=== PATIENT | male | born 1960 | race Caucasian/White ===

== ENCOUNTER 2016-11-27 07:06 | Emergency (ER) | payer BC, OTHER ==
[~2016-11-27] VITALS: Ht 180.3 cm; Wt 131.5 kg
[~2016-11-27 07:06] MED LIST: ACTOS 30 MG TAB30 M2 PO; AMLODIPINE PO; ATIVAN0.5 MG PO; BUSPIRONE HCL10 MG PO; COLACE100 MG; DIOVAN HCT 1601 EAC1 PO; DIOVAN PO; DIOVAN160 MG; HUMULIN 50100 UNIT/1 SQ; HUMULINR100 SQ; HUMULINU500 SUBQ; HYDROCHLOROTHIA25 M1; HYDROCODONE-APA1 TA1 PO; LIPITOR 20 MG T20 M1 PO; LOSARTAN POTAS100 MG PO; LOSARTAN-HCTZ1 EAC1 PO; LOSARTAN-HCTZ1 EAC3 PO; METOCLOPRAMIDE10 MG PO; MIRALAX255 GM PO; MOBIC7.5 MG PO; MS CONTIN15 MG PO; NABUMETONE 750750 M1 PO; NAPROSYN500 MG PO; NEURONTIN 300300 M1; NEURONTIN 300300 M1 PO; NORVASC 5 MG TAB5 MG; OXECTA5 MG PO; OXYCODONE-ACET1 EACH PO; OXYCONTIN10 MG PO; PANTOPRAZOLE SO40 M1 PO; PERCOCET 5-3251 EACH PO; PERCOCET PO; PREVACID15 MG PO; PROTONIX40 M2 PO; REGLAN 10 MG TA10 MG PO; REGLAN10 MG PO; RELAFEN750 MG PO; REMERON15 MG PO; TEGRETOL XR100 MG PO; TRILEPTAL 300300 MG PO; TRILEPTAL150 MG PO
[2016-11-27 09:06] LABS: URINE BILIRUBIN NEGATIVE (Negative); URINE BLOOD NEGATIVE (Negative); URINE COLOR YELLOW; URINE GLUCOSE-RANDOM* 3+ (Negative); URINE KETONES NEGATIVE (Negative); URINE NITRITE NEGATIVE (Negative); URINE PROTEIN (DIPSTICK) NEGATIVE (Negative)
[2016-11-27 09:18] VITALS: BP 128/64
[2016-11-27] MEDS ORDERED: PREDNISONE 20 M20 MG PO (09:21)
[2016-11-27] MEDS ORDERED: OXAYDO7.5 MG PO (09:21)
[2016-11-27] MEDS ORDERED: ROBAXIN500 MG PO (10:11)
[2016-12-05] MEDS ORDERED: NORCO 7.5-3251 EACH PO (13:12)
[2016-12-05] MEDS ORDERED: ZANAFLEX4 MG PO (13:12)
== END 2016-11-27 10:27 | disposition home or self-care (01) ==
LOC: ER 07:06
PROVIDERS: Emergency Medicine
DX: G89.29 Other chronic pain (principal); M54.5 Low back pain; I10 Essential (primary) hypertension; K21.9 Gastro-esophageal reflux disease without esophagitis; E11.9 Type 2 diabetes mellitus without complications; F32.9 Major depressive disorder, single episode, unspecified; F41.9 Anxiety disorder, unspecified; G47.30 Sleep apnea, unspecified; F10.99 Alcohol use, unspecified with unspecified alcohol-induced disorder; Z76.0 Encounter for issue of repeat prescription; Z87.442 Personal history of urinary calculi; Z96.652 Presence of left artificial knee joint; Z88.0 Allergy status to penicillin; Z79.4 Long term (current) use of insulin

== ENCOUNTER → 2016-12-01 | Outpatient (CLI) | payer BC, OTHER ==
[~2016-12-01] MED LIST changes: +NORCO 7.5-3251 EACH PO; +OXAYDO7.5 MG PO; +PREDNISONE 20 M20 MG PO; +ROBAXIN500 MG PO; +ZANAFLEX4 MG PO
== END ==
LOC: RAD 11:53
DX: M47.896 Other spondylosis, lumbar region (principal); S70.01XA Contusion of right hip, initial encounter; M25.551 Pain in right hip

== ENCOUNTER → 2016-12-05 | Outpatient (CLI) | payer BC, OTHER ==
[~2016-12-05] VITALS: Ht 182.9 cm; Wt 136.1 kg
--- NOTE | ~2016-12-05 | HPC ---
[facility] [place] [address] PAIN MANAGEMENT CONSULTATION Name: TEA ALEJANDRO Room #: REG [facility] Alon.#: [id number] Admission: 12/05/16 Attend Phys: Bharat Greer DO Discharge: Date of : 64 Report #: [id number] THIS REPORT FOR: //name// CC: Abdifatah Greer DATE OF SERVICE: 12/05/2016 HISTORY OF PRESENT ILLNESS: Mr. Alejandro is a pleasant 56-year-old gentleman, prior treated for symptomatic lumbar radiculopathy and neuropathic pain, status post lumbar decompressive laminectomy. He was last seen in the Pain Clinic greater than 2 years ago for cervical radicular symptoms. He is somewhat lost to follow up. He returns to Pain Clinic today with acute exacerbation of lumbar radicular pain, subsequent to a fall. He fell in the rain about a month ago, with acute exacerbation of pain, now radiating into the right greater than left leg, lateral thigh anterior aspect. He tried Aleve with some efficacy; prednisone, with ongoing pain. He rates it /10. He has a sharp, aching, throbbing, electric sensation. He was actually seen in the ER on 11/27/2016 with pain getting worse. X-rays were ordered at that time. It does show the spinal cord stimulator that was placed on 01/13/2011. This still seems to be working. Did have DJD in the lumbar spine and some narrowing at L3-L4, L4-L5 area. He denies saddle anesthesia or bowel or bladder continence changes. 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 PHYSICAL EXAMINATION: Shows a 56-year-old gentleman, elevated BMI of 40.7 kilograms per meter squared. Vital signs stable as noted in the EMR. Again, subjective VAS score is 7. Rises from chair using armrest, markedly antalgic gait, somewhat forward bending. Decreased left hip flexion strength. Lower extremity extension strength on the left is also diminished. Positive straight leg raise at 30 degrees on the left. Patellar reflex is diminished on this side. ASSESSMENT: Symptomatic lumbar radiculopathy, acute exacerbation of radicular pain in this gentleman, status post decompressive laminectomy, neuropathic pain, history of cervical radiculopathy as well. RECOMMENDATIONS: 1. Lumbar epidural injection under fluoroscopy today at L3-L4. 2. We will order a CT myelogram of the lumbar spine. Have patient accomplish this next week if he does not get significant relief with today's injection. 3. Renew hydrocodone 7.5/325, dispensed 75 tablets, one tablet q. 4-6 hours. We will trial Zanaflex 4 mg t.i.d., 60 tablets, 1 refill for muscle spasms as well. [address] [address] PAIN MANAGEMENT CONSULTATION Name: TEA ALEJANDRO [id number] Admission: 12/05/16 Attend Phys: Bharat Greer DO Discharge: Date of : 64 Report #: [id number] The patient was seen for prolonged visit today. Greater than 25 minutes was spent reviewing interval history, current issues and the treatment options. Seen from 1252 to 1325. Taken to the procedure room at 1332. PROCEDURE: Lumbar epidural injection under fluoroscopy. PROCEDURE NOTE: After both written and informed consent to include risk of spinal cord damage, increased pain, weakness and dural puncture, the patient was taken to the fluoroscopy suite, placed in the prone position. After sterile prep and drape, a skin wheal with lidocaine was raised. A 22-gauge epidural Tuohy needle was inserted in the midline at L3-L4 with good loss to resistance. Negative aspiration for cerebrospinal fluid or blood was noted. Then 1 mL of Omnipaque under biplanar fluoroscopy showed good spread within the epidural space. This was followed with 80 mg of triamcinolone plus 1 mL of 1.5% preservative-free Xylocaine, 0.5 mL Xylocaine was then injected to flush the needle; it was removed. The patient was monitored for an appropriate period of time and discharged in good and stable condition. <ELECTRONICALLY SIGNED> By: Bharat Greer DO 12/08/16 1014 1602 1355 Bharat Greer DO /nt
[2016-12-05 12:43] VITALS: BP 130/85
== END | disposition home or self-care (01) ==
LOC: PAIN 07:19
DX: M54.16 Radiculopathy, lumbar region (principal); G62.9 Polyneuropathy, unspecified; Z98.890 Other specified postprocedural states; Z68.41 Body mass index [BMI] 40.0-44.9, adult; M54.12 Radiculopathy, cervical region; Z79.899 Other long term (current) drug therapy

== ENCOUNTER → 2016-12-11 | Outpatient (CLI) | payer BC, OTHER | LOC: CAT 07:50 | DX: M47.896 Other spondylosis, lumbar region (principal) ==

== ENCOUNTER → 2017-01-05 | Outpatient (CLI) | payer BC, OTHER ==
[~2017-01-05] VITALS: Ht 182.9 cm; Wt 134.3 kg
--- NOTE | ~2017-01-05 | HPC ---
[facility] [place] [address] [place] [address] PAIN MANAGEMENT CONSULTATION Name: WILSONTEA G Room #: REG [facility] Plata#: [id number] Admission: 01/05/17 Attend Phys: Bharat Greer DO Discharge: Date of : 64 Report #: [id number] THIS REPORT FOR: //name// CC: Abdifatah Greer DATE OF SERVICE: 01/05/2017 HISTORY OF PRESENT ILLNESS: The patient is a very pleasant 56-year-old gentleman, long treated for symptomatic lumbar radiculopathy, status post decompressive laminectomy, component of neuropathic pain, component of cervical radiculopathy. Last visit on 12/04/2016. We did an epidural injection at L3-L4. The patient is having ongoing axial back pain along with lumbar radicular pain. We ordered an MRI of the lumbar spine due to progressive symptoms. CT myelogram on 12/11/2016 was reviewed with the patient today. Does have some ligamentum flavum hypertrophy at L3-L4, L4-L5 does note a prior hemilaminectomy, neural foraminal stenosis is noted at L4-L5 and L5-S1 with multilevel spondylosis. The good news is there is essentially no effective changes from prior study, 07/05/2010. The patient returns to pain clinic today noting that the last injection did afford good relief, but pain continues to be problematic. He notes specifically 100% relief for couple of days and then overall pain relief for 4+ weeks. Pain began to recur 2-1/2 days ago and has been quite problematic. PHYSICAL EXAMINATION: Shows tenderness over the L4-L5, L5-S1 facets. Pain exacerbated with side bending and rotation. Still has ongoing lumbar radicular symptoms as well. RECOMMENDATION: Discussion with the patient today about therapeutic options. He would like to proceed with epidural injection under fluoroscopy today at L3-L4, followup him in 4 weeks for reevaluation. I will send the patient to physical therapy for core stabilization. If axial back pain remains problematic at next visit, we will consider moving forward with L4-L5 and L5-S1 bilateral facet joint injections. ASSESSMENT: Symptomatic lumbar radiculopathy secondary to spinal stenosis. PROCEDURE: Lumbar epidural injection under fluoroscopy. PROCEDURE NOTE: After both written and informed consent to include risk of spinal cord damage, increased pain, weakness and dural puncture, the patient was taken to the fluoroscopy suite, placed in the prone position. After sterile [address] [address] PAIN MANAGEMENT CONSULTATION Name: TEA RACHEL Room #: REG CLI Sherlyn#: [id number] Admission: 01/05/17 Attend Phys: Bharat Greer DO Discharge: Date of : 64 Report #: [id number] prep and drape, a skin wheal with lidocaine was raised. A 22-gauge epidural Tuohy needle was inserted in the midline epidural at L3-L4 with good loss to resistance. Negative aspiration for cerebrospinal fluid or blood was noted. Then 1 mL of Omnipaque under biplanar fluoroscopy showed good spread within the epidural space. This was followed with 80 mg of triamcinolone plus 1 mL of 1.5% preservative-free Xylocaine, 0.5 mL Xylocaine was then injected to flush the needle; it was removed. The patient was monitored for an appropriate period of time and discharged in good and stable condition. By: 1540 0135 Bharat Greer DO /nt
[2017-01-05 14:22] VITALS: BP 137/93
== END | disposition home or self-care (01) ==
LOC: PAIN 08:47
DX: M48.061 Spinal stenosis, lumbar region without neurogenic claudication (principal); G89.29 Other chronic pain; M54.12 Radiculopathy, cervical region; Z98.890 Other specified postprocedural states; Z87.442 Personal history of urinary calculi; Z88.0 Allergy status to penicillin; Z79.899 Other long term (current) drug therapy; Z79.4 Long term (current) use of insulin

== ENCOUNTER → 2017-02-06 | Outpatient (CLI) | payer BC, OTHER ==
[~2017-02-06] VITALS: Ht 182.9 cm; Wt 133.2 kg
--- NOTE | ~2017-02-06 | HPC ---
[facility] [place] [place] [address] PAIN MANAGEMENT CONSULTATION Name: TEA RACHEL [facility] [id number] Admission: 02/06/17 Attend Phys: Bharat Greer, DO Discharge: Date of : 64 Report #: [id number] THIS REPORT FOR: //name// CC: Abdifatah Greer The patient is a very pleasant 56-year-old gentleman we treated for some time. He is status post decompressive lumbar laminectomy, axial back pain and comorbidity of lumbar spondylosis. Last visit 01/05/2017, proceeded with epidural injection at L3-L4, sent the patient to Physical Therapy for core strengthening. Ongoing lumbar radicular symptoms. I ordered CT myelogram of the lumbar spine (the patient has a spinal cord stimulator placed, precluding MRI). The patient returns to the pain clinic today. He notes that the prior epidural injection on 01/05/2017 did afford good relief, noting 50% relief for several weeks and pain is gradually beginning to recur. Pain is in the low back, chronically in the right leg, now a little bit on the left. Describes aching, throbbing, constant, sharp, burning, radiating stiffness. He rates the pain a 4 on VAS, on average 7-8 today. PHYSICAL EXAMINATION: Shows a 56-year-old gentleman, moderately obese, BMI is 39.8 kilograms per meter squared. Vital signs are otherwise stable as noted in the EMR. He has burning in the lateral aspect of the leg, right side L4 distribution. Positive straight leg raise on the right. Slight decreased right hip flexion strength and lower extremity extension strength about 3/5 to objective testing versus 4-5/5 for all muscle groups. DIAGNOSTIC STUDIES: Reviewed the CT myelogram from 12/11/2016. Multilevel lumbar spondylosis, no dramatic change in symptoms, but with ongoing right L4 radicular symptoms with good transient relief with epidural injections, concern for the neural foraminal narrowing noted at multiple levels greatest at L4-L5 and L5-S1. We have taken the liberty of referring the patient to Neurosurgery for consideration for more definitive intervention. Otherwise, continue baseline medication including tizanidine 4 mg t.i.d. Really does not use any opiate analgesics for any regularity. ASSESSMENT: History of insulin-dependent diabetes, gastroesophageal reflux and moderate obesity, relative contraindications to ongoing nonsteroidal anti-inflammatory medication chronic use. PROCEDURE: Lumbar epidural injection under fluoroscopy. PROCEDURE NOTE: After both written and informed consent to include risk of spinal cord damage, increased pain, weakness and dural puncture, the patient was [address] [address] PAIN MANAGEMENT CONSULTATION Name: TEA RACHEL Room #: REG [facility] Plata#: [id number] Admission: 02/06/17 Attend Phys: Bharat Greer DO Discharge: Date of : 64 Report #: [id number] taken to the fluoroscopy suite, placed in the prone position. After sterile prep and drape, a skin wheal with lidocaine was raised. A 22-gauge epidural Tuohy needle was inserted in the midline at L3-L4 with good loss to resistance. Negative aspiration for cerebrospinal fluid or blood was noted. Then 1 mL of Omnipaque under biplanar fluoroscopy showed good spread within the epidural space. This was followed with 80 mg of triamcinolone plus 1 mL of 1.5% preservative-free Xylocaine, 0.5 mL Xylocaine was then injected to flush the needle; it was removed. The patient monitored for an appropriate period of time, discharged in good stable condition. Referred to Neurosurgery for possible definitive intervention. <ELECTRONICALLY SIGNED> By: Bharat Greer DO 02/09/17 0759 1020 1444 Bharat Greer DO /nt
[2017-02-06 14:11] VITALS: BP 119/77
== END | disposition home or self-care (01) ==
LOC: PAIN 06:56
DX: M54.16 Radiculopathy, lumbar region (principal); G89.29 Other chronic pain; E11.9 Type 2 diabetes mellitus without complications; K21.9 Gastro-esophageal reflux disease without esophagitis; E66.01 Morbid (severe) obesity due to excess calories; Z79.4 Long term (current) use of insulin; Z79.891 Long term (current) use of opiate analgesic; Z88.0 Allergy status to penicillin; Z87.442 Personal history of urinary calculi; Z79.899 Other long term (current) drug therapy; Z68.39 Body mass index [BMI] 39.0-39.9, adult

== ENCOUNTER → 2017-07-06 | Outpatient (CLI) | payer BC, OTHER ==
[~2017-07-06] VITALS: Ht 182.9 cm; Wt 117.8 kg
[~2017-07-06] MED LIST changes: +HYDROCODON-ACE1 EA12 PO
--- NOTE | ~2017-07-06 | HPC ---
[facility] [place] [address] PAIN MANAGEMENT CONSULTATION Name: WILSONTEA Engel Wagner [facility] [id number] Admission: 07/06/17 Attend Phys: Bharat Greer DO Discharge: Date of : 64 Report #: [id number] THIS REPORT FOR: //name// CC: Abdifatah Greer HISTORY OF PRESENT ILLNESS: The patient is a 57-year-old gentleman long known to the pain clinic, typically treated for lumbar radiculopathy status post decompressive laminectomy, axial back pain and lumbar spondylosis. He was last seen in the pain clinic on 02/06/2017. Having ongoing radicular pain, I did one injection and referred him to Neurosurgery. He ultimately ended up having an L3-L4 decompressive laminectomy on 04/30/2017. Unfortunately, this was complicated with a dural leak and had to have a surgical revision subsequently. He is actually in the hospital for approximately 2 weeks. His chronic right lumbar radicular pain, I am pleased to note, has gone; however, he does have axial back and left buttock and leg pain that is quite problematic and rates it 7 on a VAS. PHYSICAL EXAMINATION: GENERAL: Reveals a 57-year-old gentleman. VITAL SIGNS: BMI is 35.2 kilograms per meter squared. Blood pressure is 143/72, pulse 87 and respirations 16. NEUROLOGICAL: He is alert and oriented to person, place and time, judged to be a reasonable historian. MUSCULOSKELETAL: Rises from the chair using the armrest, modestly antalgic gait. Lumbar flexion is limited to 70 degrees. Well-healed surgical scar compatible with recent history tender from about L4 down bilaterally. Moderately positive straight leg raise on the left. The lower extremity strength is generally preserved. Patellar and Achilles reflexes are diminished but symmetric. He has equivocal Arlen test on the left. SKIN: Integument is intact. DIAGNOSTIC DATA: There are no recent diagnostic studies available for evaluation at this time. ASSESSMENT: Symptomatic lumbar radiculopathy, status post multiple back surgeries, most recently earlier this year, L3-L4 laminectomy, complicated with a dural leak and subsequent surgical revision. Right radicular pain gone but now left lumbar radicular symptoms predominant. RECOMMENDATIONS: 1. Epidural injection under fluoroscopy at L5-S1. 2. Tizanidine 4 mg 1 to 2 at bedtime. I will renew this prescription and he has been on it for some time. 3. Hydrocodone 7.5/325 one tablet 2-3 times a day, limit 75 tablets for 30 days. The patient cautioned about daytime somnolence, mental acuity changes and [address] [address] PAIN MANAGEMENT CONSULTATION Name: WILSONTEA Wagner Room #: REG [facility] Plata#: [id number] Admission: 07/06/17 Attend Phys: Bharat Greer DO Discharge: Date of : 64 Report #: [id number] constipation. Follow up in 3-4 weeks for reevaluation. If symptoms continue, we will work with physical therapy. Hopefully, we can mitigate symptoms to some degree. ASSESSMENT: Symptomatic lumbar radiculopathy status post decompressive laminectomy, axial back pain, neuropathic pain requiring complex medication management. PROCEDURE NOTE: PROCEDURE: Lumbar epidural injection under fluoroscopy. PROCEDURE NOTE: After both written and informed consent to include risk of spinal cord damage, increased pain, weakness and dural puncture, the patient was taken to the fluoroscopy suite, placed in the prone position. After sterile prep and drape, a skin wheal with lidocaine was raised. A 22-gauge epidural Tuohy needle was inserted in the midline at L5-S1 with good loss to resistance. Negative aspiration for cerebrospinal fluid or blood was noted. Then 1 mL of Omnipaque under biplanar fluoroscopy showed good spread within the epidural space. This was followed with 80 mg of triamcinolone plus 1 mL of 1.5% preservative-free Xylocaine, 0.5 mL Xylocaine was then injected to flush the needle; it was removed. The patient was monitored for an appropriate period of time and discharged in good and stable condition. <ELECTRONICALLY SIGNED> By: Bharat Greer DO 07/08/17 0803 1505 0712 Bharat Greer DO /nt
[2017-07-06 12:39] VITALS: BP 143/72
== END | disposition home or self-care (01) ==
LOC: PAIN 08:13
DX: M54.16 Radiculopathy, lumbar region (principal); G89.29 Other chronic pain; Z98.890 Other specified postprocedural states; Z79.891 Long term (current) use of opiate analgesic; Z88.0 Allergy status to penicillin; Z79.899 Other long term (current) drug therapy

== ENCOUNTER → 2017-11-20 | Outpatient (CLI) | payer BC, OTHER ==
[~2017-11-20] VITALS: Ht 182.9 cm; Wt 119.5 kg
--- NOTE | ~2017-11-20 | HPC ---
[facility] [place] [address] PAIN MANAGEMENT CONSULTATION Name: TEA RACHEL Room #: REG [facility] Alon.#: [id number] Admission: 11/20/17 Attend Phys: Isael Moore MD Discharge: Date of : 64 Report #: [id number] THIS REPORT FOR: //name// CC: Isael Moreno DATE OF SERVICE: 11/20/2017 FOLLOWUP HISTORY: The patient is a 57-year-old gentleman who has been followed in the pain clinic by Dr. Bharat Greer. He has a history of lumbar problems. He has undergone decompressive lumbar laminectomies, has axial back pain and comorbidities of lumbar spondylosis. He has undergone epidural steroid injections in the past and found that these were helpful. He has continued to follow exercises provided by physical therapy in regards to core strengthening. He states that he did undergo an epidural steroid injection by Dr. Greer. Noted significant benefit on this pain. Pain involves the lower portion of his back with pain radiating down to the buttocks area. He did undergo surgery with Dr. Brink at [facility]. Notes that the pain, which is radiating down into his leg has improved. Rates his pain as a 7/10 at this juncture. Notes walking and standing as well as walking on any uneven ground can exacerbate his discomfort. Bending can be problematic. Notes some stiffness in the lower back area. Denies any bowel or bladder or new bowel or bladder dysfunction. ALLERGIES: PENICILLIN. CURRENT MEDICATIONS: Hydrocodone 7.5/325 q.6 hours p.r.n., trazodone 4 mg t.i.d., Ativan 0.5 mg, insulin 500 units subcutaneous b.i.d., Lipitor 20 mg, Protonix 40 mg, Actos 30 mg. PAST MEDICAL HISTORY: Diabetes, essential hypertension, gastroesophageal reflux, gastroparesis, sleep apnea, morbid obesity, left total knee replacement, anxiety, depression, renal stones, migraine headaches, panic attacks, seizures, sleep walking. PAST SURGICAL HISTORY: Colonoscopy, adenomatous polyp in 02/2012, left total knee replacement in 2008, right carpal tunnel release in 1995, lumbar diskectomy L4-L5 in 2005, lumbar spine surgery in 1994, back surgery in 1995, left renal stone in 2003, gastric sleeve in 2013. SOCIAL HISTORY: Purchasing/medical manager, has children. REVIEW OF SYSTEMS: As per HPI. LABORATORY DATA: No new laboratory values are available. CT of the lumbar spine dated 12/11/2016: 1. L2-L3 disk space narrowing. There is a small [place] [address] PAIN MANAGEMENT CONSULTATION Name: TEA RACHEL Room #: REG [facility]#: [id number] Admission: 11/20/17 Attend Phys: Isael Moore MD Discharge: Date of : 64 Report #: [id number] complex seen centrally, which effaces the ventral sac. There is mild degenerative facet disease. There is filling of the nerve root sheaths. There is no central canal or neural foraminal stenosis. The appearance is similar to prior study. 2. L3-L4 disk desiccation and mild circumferential disk bulge with effacement of the ventral sac. There is subtle effacement of the ventral surface of the L4 nerve roots. There is moderate bilateral facet hypertrophy with ligamentum flavum thickening measuring 5 mm. There is mild bilateral neural foraminal narrowing. There is filling of the nerve sheath bilaterally. The anterior osteophyte formation is present. 3. L4-L5 disk space narrowing with vacuum disk phenomenon. There is a posterior endplate osteophyte. A remote right-sided laminectomy is present. There is mild left-sided ligamentum flavum thickening. There is [id number] bilateral neural foraminal narrowing and mild effacement of the undersurface of both exiting L4 nerve roots. This is slightly greater on the left. No significant central canal stenosis is present. There is a filling of the nerve root sheaths. 4. L5-S1, small posterior disk osteophyte complex. There is a hypertrophy of both facet joints. There is filling of the S1 nerve root sheaths. There is bilateral neural foraminal narrowing and endplate ridging and effacement of the undersurface of the exiting L5 nerve roots. PAIN CLINIC ASSESSMENT: 1. History of osteoarthritis. The patient has had some arthritic changes in his knees. 2. Rheumatoid arthritis. The patient has not been treated for rheumatoid arthritis. 3. Height 6 feet 0 inches, weight 263 pounds, BMI is 35.7. 4. Vital signs: Blood pressure 118/73, pulse 83, respiratory rate 16, room air saturation 99%. 5. Pain intensity 7/10. 6. Fall risk. The patient has not fallen in the last 3 months. 7. Blood thinner. The patient is not on a blood thinning medication. 8. History of hypertension. The patient is being treated for hypertension. 9. Opioid therapy greater than 6 weeks. The patient gets opioid medications through the pain clinic. 10. Risk assessment tool. 11. Functional assessment tool. 12. Recreational drug use. The patient denies use of recreational drugs. 13. Tobacco: The patient has never smoked. 14. Alcohol. The patient drinks alcoholic beverages on occasion. PHYSICAL EXAMINATION: GENERAL: The patient is a well-developed, well-nourished white male, appears his stated age. He is somewhat obese. HEENT: Normocephalic, atraumatic. Extraocular eye muscles intact. Sclerae [facility] [address] [place] [address] PAIN MANAGEMENT CONSULTATION Name: TEA RACHEL Room #: [facility]#: [id number] Admission: 11/20/17 Attend Phys: Isael Moore MD Discharge: Date of : 64 Report #: [id number] nonicteric. Mucous membranes are moist. HEART: Regular rate. S1, S2. ABDOMEN: Nontender. LUNGS: Clear to auscultation. EXTREMITIES: Upper extremity muscle strength is judged to be 5/5 for the major muscle groups. The patient without significant scoliosis, kyphosis or lordosis. The patient has pain and discomfort in the lower portion of his back. He is experiencing pain, which is radiating down the posterior portion of his leg, more right-sided than left. It involves and radiates down past into his hip. IMPRESSION: Lumbar radiculopathy, L5-S1 dermatomal distribution, diabetes, essential hypertension, gastroesophageal reflux, gastroparesis, sleep apnea, morbid obesity, left total knee replacement, anxiety, depression, renal stones, migraine headaches, panic attacks, seizures, sleep walking. RECOMMENDATIONS: We discussed treatment options with the patient. Risks and benefits of an epidural steroid injection were discussed. Possible complications of the procedure were reviewed. They include worsening of pain, no improvement in pain, infection, spinal headache, nerve damage. The patient elects to proceed. PROCEDURE NOTE: The patient was placed in the prone position. Fluoroscopy was used to identify the L5-S1 area. This area had been sterilely prepped with Betadine. A right paramedian approach was chosen. A 0.25% bupivacaine was infiltrated. Near the right area, a total of 80 mg Depo-Medrol, 40 mg triamcinolone and 2 mL of 0.25% bupivacaine was injected. The patient tolerated the procedure well. There were no complications. He remained in the pain clinic for an appropriate amount of time. We would like to thank you for letting us participate in his care. We hope he continues to improve. A script for his medications of tizanidine was rewritten. <ELECTRONICALLY SIGNED> By: Isael Moore MD 12/21/17 1124 1645 0403 Isael Moore MD /[facility]
[2017-11-20 14:41] VITALS: BP 118/73
== END | disposition home or self-care (01) ==
LOC: PAIN 07:07
DX: M54.16 Radiculopathy, lumbar region (principal); G89.29 Other chronic pain; I10 Essential (primary) hypertension; E11.9 Type 2 diabetes mellitus without complications; K21.9 Gastro-esophageal reflux disease without esophagitis; G47.33 Obstructive sleep apnea (adult) (pediatric); E66.01 Morbid (severe) obesity due to excess calories; F32.9 Major depressive disorder, single episode, unspecified; F41.9 Anxiety disorder, unspecified; G43.909 Migraine, unspecified, not intractable, without status migrainosus; Z96.652 Presence of left artificial knee joint; Z98.890 Other specified postprocedural states; Z79.899 Other long term (current) drug therapy; Z90.3 Acquired absence of stomach [part of]; Z88.0 Allergy status to penicillin; Z79.891 Long term (current) use of opiate analgesic; Z68.35 Body mass index [BMI] 35.0-35.9, adult

== ENCOUNTER → 2018-01-06 | Outpatient (CLI) | payer BC, OTHER ==
[~2018-01-06] VITALS: Ht 180.3 cm; Wt 120.7 kg
--- NOTE | ~2018-01-06 | HPC ---
[facility] [place] [address] PAIN MANAGEMENT CONSULTATION Name: TEA RACHEL Room #: REG Susie MToby.#: [id number] Admission: 01/06/18 Attend Phys: Isael Moore MD Discharge: Date of : 64 Report #: [id number] THIS REPORT FOR: //name// CC: Isael Moreno DATE OF SERVICE: 01/06/2018 REASON FOR VISIT: "I have been moving some files around at work and noticed worsening of my pain". FOLLOWUP HISTORY: The patient is a 57-year-old gentleman who has been followed in the Pain Clinic. He has a history of lumbar radiculopathy. He has undergone decompressive lumbar laminectomies in the past. Continues to have some axial back pain. Also, has some lumbar spondylosis. He has undergone epidural steroid injections and found these beneficial. He has been working. At work, he has been moving some files. States that there is a lot of bending and twisting associated with this. Because of this activity, has noticed a worsening of his pain and discomfort. He has returned to the pain clinic today for pain for an epidural steroid injection. He has gleaned greater than 50% improvement at the last visit. Continues to have pain that radiates from the posterior portion of his right leg down to the posterior calf area. ALLERGIES: PENICILLIN. CURRENT MEDICATIONS: Hydrocodone 7.5 mg 1 p.o. q. 6 hours p.r.n., trazodone 4 mg t.i.d., Ativan 0.5 mg, insulin 500 units subq b.i.d., Lipitor 20 mg, Protonix 40 mg, Actos 30 mg. PAIN CLINIC ASSESSMENT/PQRS: 1. History of osteoarthritis. The patient is having some arthritic changes in his knees. He is not being treated for rheumatoid arthritis. 2. Height 6 feet, weight 266 pounds, BMI is 37.1. 3. Vital Signs: Blood pressure 120/79, pulse 88, respiratory rate 16, room air saturation 100%. 4. Pain intensity 09/15. 5. Fall risk. The patient has not fallen in the last 3 months. 6. Blood thinner. The patient is not on a blood thinning medication. 7. History of hypertension. The patient is being treated for hypertension. 8. Opioids. The patient receives this medication from one source, the Pain Clinic. 9. Risk assessment tool. 10. Functional assessment tool. 11. Recreational drug use. The patient denies use of recreational drugs. 12. Tobacco: The patient has never smoked. 13. Alcohol. The patient drinks on special occasions. [address] [address] PAIN MANAGEMENT CONSULTATION Name: TEA RACHEL Room #: REG [facility]#: [id number] Admission: 01/06/18 Attend Phys: Isael Moore MD Discharge: Date of : 64 Report #: [id number] PHYSICAL EXAMINATION: GENERAL: The patient is a well-developed, well-nourished white male. Appears his stated age. He is alert and oriented x3. He is somewhat obese. HEENT: Normocephalic, atraumatic. Extraocular eye muscles intact. Sclerae nonicteric. Mucous membranes are moist. NECK: With good range of motion. HEART: Regular rate. S1, S2. ABDOMEN: Nontender, protuberant. Bowel sounds present. LUNGS: Clear to auscultation. EXTREMITIES: Without significant scoliosis, kyphosis or lordosis. Upper extremity muscle strength is judged to be 5/5 for the major muscle groups. The patient has pain and discomfort in the lower portion of his back with pain radiating down into the right side and leg. He also has some discomfort in his left hip. IMPRESSION: 1. Lumbar radiculopathy, L5-S1 dermatomal distribution. 2. Diabetes. 3. Essential hypertension. 4. Gastroesophageal reflux. 5. Gastroparesis. 6. Sleep apnea. 7. Morbid obesity. 8. Left total knee replacement. 9. Anxiety. 10. Depression. 11. Renal stones. 12. Migraine headaches. 13. Panic attacks. 14. Seizures. 15. Sleep walking. RECOMMENDATIONS: We discussed treatment options with the patient. Risks and benefits of an epidural steroid injection were again reviewed. Possible complications of the procedure were discussed. They include but are not limited to infection, increased muscle soreness, headache, worsening of pain, no improvement in pain, paralysis. The patient elects to proceed. PROCEDURE NOTE: The patient was taken to the procedure area. He was assisted in getting on the examination table. His back was sterilely prepped with a Betadine solution. A pillow was placed under his abdomen to improve for positioning. Anterior and posterior fluoroscopy as well as lateral viewing were implemented to help visualize appropriate placement of needle. His back was sterilely prepped and a 25-gauge needle was used to inject 0.25% bupivacaine. A 17-gauge Tuohy with loss of resistance technique was used to gain access to the [address] [address] PAIN MANAGEMENT CONSULTATION Name: TEA RACHEL [id number] Admission: 01/06/18 Attend Phys: Isael Moore MD Discharge: Date of : 64 Report #: [id number] epidural space. The right paraspinous area was identified. Total of 80 mg Depo-Medrol, 40 mg triamcinolone and 2 mL of 0.25% bupivacaine was injected. The patient tolerated the procedure well. There were no complications. He remained in the pain clinic for an appropriate amount of time. He will follow up in the future as needed. We would like to thank you for letting us participate in his care. We hope he continues to improve. By: [id number] Isael Moore MD /nt
[2018-01-06 12:54] VITALS: BP 120/79
== END | disposition home or self-care (01) ==
LOC: PAIN 06:54
DX: M47.26 Other spondylosis with radiculopathy, lumbar region (principal); I10 Essential (primary) hypertension; K21.9 Gastro-esophageal reflux disease without esophagitis; E11.43 Type 2 diabetes mellitus with diabetic autonomic (poly)neuropathy; K31.84 Gastroparesis; G47.30 Sleep apnea, unspecified; F41.9 Anxiety disorder, unspecified; F32.9 Major depressive disorder, single episode, unspecified; N40.0 Benign prostatic hyperplasia without lower urinary tract symptoms; G43.909 Migraine, unspecified, not intractable, without status migrainosus; R56.9 Unspecified convulsions; M17.10 Unilateral primary osteoarthritis, unspecified knee; E66.01 Morbid (severe) obesity due to excess calories; Z68.37 Body mass index [BMI] 37.0-37.9, adult; Z88.0 Allergy status to penicillin; Z96.652 Presence of left artificial knee joint; Z98.890 Other specified postprocedural states; Z79.899 Other long term (current) drug therapy; Z79.4 Long term (current) use of insulin; Z79.891 Long term (current) use of opiate analgesic

== ENCOUNTER → 2018-03-05 | Outpatient (CLI) | payer BC, OTHER ==
[~2018-03-05] VITALS: Ht 182.9 cm; Wt 125.3 kg
[~2018-03-05] MED LIST changes: +MOBIC15 MG PO
--- NOTE | ~2018-03-05 | HPC ---
[facility] [place] [address] PAIN MANAGEMENT CONSULTATION Name: TEA RACHEL [facility] #: [id number] Admission: 03/05/18 Attend Phys: Isael Moore MD Discharge: Date of : 64 Report #: [id number] THIS REPORT FOR: //name// CC: Isael Moreno DATE OF SERVICE: 03/05/2018 CHIEF COMPLAINT: Low back pain that is radiating down into the buttocks and has improved with injections in the past. HISTORY: The patient is a 57-year-old gentleman who has been followed in the pain clinic for some number of years. He has had back surgeries in the past. He has undergone lumbar laminectomies. Continues to have pain, which becomes problematic episodically. He is experiencing some axial pain as well as some pain which is radiating down into his left thigh. Describes it as a burning sensation with weakness in his left leg. It involves the left side. He states that it feels like it is "on fire." Does have some sensory changes of his lower extremity because of his diabetes. Overall, he feels that things have worsened and he would like to proceed today with an epidural steroid injection. Epidural steroid injection in the past have been helpful. Again, this new pain and discomfort in the anterior portion of his thigh is problematic and he would like to proceed with an injection. ALLERGIES: PENICILLIN. MEDICATIONS: Hydrocodone 7.5 mg 1 p.o. q. 6 hours, trazodone 4 mg p.o. t.i.d., Ativan 5 mg, insulin 500 units subcutaneous injections as needed b.i.d., Lipitor 20 mg, Protonix 40 mg, Actos 30 mg. PAIN CLINIC ASSESSMENT/PQRS: 1. History of osteoarthritis. The patient does have some arthritic changes in his knees. He is not being treated for rheumatoid arthritis. 2. Height 6 feet, weight 276 pounds, BMI is 37.5. 3. Vital signs: Blood pressure 113/72. Pulse 81, respiratory rate 16. 4. Room air saturation is 100%. 5. A pain intensity 8/10. 6. Fall risk. The patient has not fallen in the last 3 months. 7. Blood thinner. The patient is not on a blood thinning medication. 8. Hypertension. The patient is being treated for hypertension. 9. Opioid therapy greater than 6 weeks. The patient is receiving medications through the pain clinic on a regular basis. 10. Risk assessment tool, low for opioid use. 11. Functional assessment tool 4470. 12. Recreational drug use. The patient denies use of recreational drugs. 13. Tobacco: The patient [place] [address] PAIN MANAGEMENT CONSULTATION Name: TEA RACHEL [facility] #: [facility] [id number] Admission: 03/05/18 Attend Phys: Isael Moore MD Discharge: Date of : 64 Report #: [id number] 14. The patient denies frequent use of alcoholic beverages. PHYSICAL EXAMINATION: GENERAL: The patient is a well-developed, well-nourished, somewhat obese white male. He appears his stated age. HEENT: Normocephalic, atraumatic. Extraocular eye muscles intact. Sclerae nonicteric. Mucous membranes are moist. NECK: Without adenopathy or JVD. Good motion. NECK: Neck without complaint. HEART: Regular rate. S1, S2. ABDOMEN: Nontender Protuberant. Bowel sounds present. LUNGS: Clear to auscultation without rhonchi or rales. EXTREMITIES: Upper extremities without complaint. Muscle strength in the upper extremity judged to be 5/5 for the major muscle groups without sensory changes. MUSCULOSKELETAL: Without significant scoliosis, kyphosis or lordosis. The patient has a well-healed scar in the middle of his back in the lumbar area. The patient has pain and discomfort in the left anterior thigh area. Complains of a burning sensation with perception of weakness in the thigh area with weakness in his lower muscle, this is in the area of quadriceps. IMPRESSION: 1. Lumbar radiculopathy history L5-S1 improved with epidural steroid injections now in the L2-3/L3-4 dermatomal distribution. 2. Diabetes. 3. Essential hypertension. 4. Gastroesophageal reflux. 5. Gastritis. 6. Sleep apnea. 7. Morbid obesity. 8. Left total knee replacement. 9. Anxiety. 10. Depression. 11. Renal stones. 12. Migraine headaches. 13. Panic attacks. 14. Seizures. 15. Sleep walking. RECOMMENDATIONS: We discussed treatment options with the patient. Risks and benefits of an epidural steroid injection were again reviewed. Possible complications of the procedure, which could include but are not limited to infection, increased muscle soreness, headache, bleeding, worsening of pain, no improvement in pain. The patient continues to have pain and discomfort in the L2-3/L3-4 area on his left leg. We will proceed with an epidural steroid injection at the L2-L3 area. Possible complications were discussed. [address] [address] PAIN MANAGEMENT CONSULTATION Name: TEA RACHEL Room #: REG PILL[facility] Chi#: [id number] Admission: 03/05/18 Attend Phys: Isael Moore MD Discharge: Date of : 64 Report #: [id number] PROCEDURE NOTE: The patient was assisted in getting on the examination table. He was placed in the prone position. Fluoroscopy using anterior, posterior as well as lateral viewing were implemented. The patient's back was sterilely prepped with a Betadine solution. A 0.25% bupivacaine was infiltrated at the L2-L3 interspace. This area was then injected using a 17-gauge Tuohy and loss of resistance technique at that level. Aspiration was negative. A total of 80 mg Depo-Medrol, 40 mg triamcinolone were injected using a midline approach. The patient remained in the pain clinic for an appropriate amount of time. Total of 15 seconds fluoroscopy time was used. There were no complications. He will follow up in the future as needed. We would like to thank you for letting us participate in his care. We hope he continues to improve. A script for tizanidine 4 mg 1 p.o. t.i.d. have been rewritten. We would like to thank you again for letting us participate in his care. We hope he continues to improve. By: [id number] Isael Moore MD /nt
[2018-03-05 08:47] VITALS: BP 113/72
--- NOTE | 2018-03-05 08:59 | NUR ---
Pain Clinic Assessment: 1. History of Osteoarthritis: History of Rheumatoid Arthritis: 2. Height: 6 ft. 0 in. 182.9 cm. Weight: 276.2 lb. oz. 125.284 kg. Patient's BMI: 37.5 3. Vital Signs: BP: 113/72 Pulse: 81 Resp: 16 Temp: 02 Sat: 100 ECG Mon: 4. Pain Intensity: 8 5. Fall Risk: Dizziness: Y Needs help standing or walking: N Fallen in the last 3 months: N Fall risk comments: 6. Patient on Blood Thinner: None 7. History of Hypertension: Y 8. Opioid Therapy greater than 6 weeks: Y Opiate Contract Signed: 9. Risk Assessment Tool Provided: LOW 10. Functional Assessment Tool: 11. Recreational Drug Use: Never Drug Type: Tobacco Use: Never Smoker Tobacco Type: Amount or Packs/day: How Many Years: Alcohol Use: Yes Frequency: Quant:
== END | disposition home or self-care (01) ==
LOC: PAIN 07:57
DX: M54.16 Radiculopathy, lumbar region (principal); E11.9 Type 2 diabetes mellitus without complications; I10 Essential (primary) hypertension; K21.9 Gastro-esophageal reflux disease without esophagitis; K29.70 Gastritis, unspecified, without bleeding; G47.30 Sleep apnea, unspecified; E66.01 Morbid (severe) obesity due to excess calories; F41.9 Anxiety disorder, unspecified; F32.9 Major depressive disorder, single episode, unspecified; G43.909 Migraine, unspecified, not intractable, without status migrainosus; F41.0 Panic disorder [episodic paroxysmal anxiety]; R56.9 Unspecified convulsions; F51.3 Sleepwalking [somnambulism]; M17.0 Bilateral primary osteoarthritis of knee; Z96.652 Presence of left artificial knee joint; Z87.442 Personal history of urinary calculi; Z98.890 Other specified postprocedural states; Z88.0 Allergy status to penicillin; Z79.899 Other long term (current) drug therapy; Z68.37 Body mass index [BMI] 37.0-37.9, adult; Z79.891 Long term (current) use of opiate analgesic

== ENCOUNTER → 2018-06-16 | Outpatient (CLI) | payer BC, OTHER ==
[~2018-06-16] VITALS: Ht 180.3 cm; Wt 127.8 kg
[~2018-06-16] MED LIST changes: +FLORINEF ACETA0.1 MG PO; +RANEXA500 MG PO
--- NOTE | ~2018-06-16 | HPC ---
[facility] [address] [employer] [place] [address] PAIN MANAGEMENT CONSULTATION Name: TEA RACHEL Room #: REG [facility]..#: [id number] Admission: 06/16/18 ������������������ Attend Phys: Isael Moore MD Discharge: ������������������ Date of : 64 Report #: [id number] THIS REPORT FOR: //name// CC: Isael Moreno MD DATE OF SERVICE: 06/16/2018 CHIEF COMPLAINT: Return of back pain in the low back. It is radiating down into the legs. HISTORY: The patient is a 58-year-old gentleman who has been followed in the pain clinic. He has had a number of surgeries in his back. He has had surgery in the upper back as well as the lower back. Has had implantable spinal cord stimulator. Continues to have pain that waxes and wanes. He returns today indicating that he is having pain that is radiating down into his leg. He has undergone epidural steroid injections in the past and found that this was beneficial. He describes his discomfort as throbbing, constant, sharp, burning, radiating, and he is experiencing stiffness. Pain is exacerbated by walking, standing, particularly when he is walking on the uneven ground. He feels that the epidural steroid injections have been helpful. He has returned today with a desire to undergo another injection. ALLERGIES: PENICILLIN. CURRENT MEDICATIONS: Hydrocodone 7.5 mg 1 p.o. q. 6 hours, trazodone 4 mg t.i.d., Ativan 5 mg, insulin 500 units receives subcutaneous injections b.i.d., Lipitor 20 mg, and Protonix 40 mg. PAIN CLINIC ASSESSMENT/PQRS: 1. Osteoarthritis. The patient has some osteoarthritic changes in his spine. Has changes in his knee. He is not being treated for rheumatoid arthritis. 2. Height 5 feet 11 inches, weight 281 pounds, BMI is 39. 3. Vital signs: Blood pressure 159/86, pulse 80, respiratory rate 16, room air saturation is 97%. 4. Pain intensity 10/16. 5. Fall history: The patient has not fallen in the last 3 months. 6. Blood thinner. The patient is not on a blood thinning medication. 7. Hypertension. The patient is being treated for hypertension. 8. Opioid greater than 6 weeks. The patient receives medication from [facility] pain clinic. 9. Risk assessment tool, low for opioid use. 10. Functional assessment 4470. 11. Recreational drug use: The patient denies. 12. Tobacco: The [place] [address] PAIN MANAGEMENT CONSULTATION Name: TEA RACHEL Room #: REG [facility]#: [id number] Admission: 06/16/18 ������������������ Attend Phys: Isael Moore MD Discharge: ������������������ Date of : 64 Report #: [id number] 13. Alcohol: The patient denies use of alcoholic beverages. PHYSICAL EXAMINATION: GENERAL: The patient is a well-developed, well-nourished white male. Appears his stated age. He is somewhat obese. HEENT: Normocephalic, atraumatic. Extraocular muscles intact. Sclerae nonicteric. Mucous membranes moist. NECK: Without adenopathy or JVD. HEART: Regular rate. ABDOMEN: Nontender. Bowel sounds present. EXTREMITIES: The patient has well-healed scars in the upper portion of his back as well as the lower portion of his back, site for the spinal cord stimulator on the left side. The patient without significant scoliosis, kyphosis, or lordosis. Has pain and discomfort, which is radiating down into his legs with a burning sensation and weakness in the anterior portion of his thighs near the quadriceps. IMPRESSION: 1. Lumbar radiculopathy, history with L5-S1 improved with epidural steroid injections. Pain in the L2-L3 dermatomal distribution today. 2. Diabetes. 3. Essential hypertension. 4. Gastroesophageal reflux. 5. Gastritis. 6. Sleep apnea. 7. Morbid obesity. 8. Left total knee replacement. 9. Anxiety. 10. Depression. 11. History of renal stones. 12. Migraine headaches. 13. Panic attacks. 14. Seizure. 15. Sleep walking. RECOMMENDATIONS: We discussed treatment options with the patient. Risks and benefits of an epidural steroid injection were discussed. Possible complications of the procedure were reviewed. They include but are not limited to infection, worsening pain, no improvement in pain, nerve damage, spinal headache, and the patient elects to proceed. PROCEDURE NOTE: The patient was taken to the procedure area. He was then assisted in getting on the examination table. His back was sterilely prepped with a Betadine solution. Fluoroscopy was used to identify the L2-L3 interspace. A 0.25% bupivacaine was infiltrated. Attempts at this site were unsuccessful L3-L4 interspace. We then moved up to the L2-L3 interspace. A [facility] [address] [place] [address] PAIN MANAGEMENT CONSULTATION Name: TEA RACHEL Room #: REG CL Alon#: [id number] Admission: 06/16/18 ������������������ Attend Phys: Isael Moore MD Discharge: ������������������ Date of : 64 Report #: [id number] 0.25% bupivacaine was infiltrated. A 17-gauge Tuohy with loss of resistance technique was used to gain access to the epidural space. There was no CSF, heme or paresthesia. Total of 80 mg Depo-Medrol, 40 mg triamcinolone, and 2 mL of 0.25% bupivacaine was injected. The patient tolerated the procedure well. There were no complications. He remained in the pain clinic for an appropriate amount of time. A total of 30 seconds fluoroscopy time was used. The patient's pain was 4/10 at the time of discharge. He will follow up in the future as needed. We would like to thank you for letting us participate in his care. We hope he continues to improve. He will monitor his blood sugars. ��������������������������������������������� ���������������������������������������� By: ��������������������������������������������� 0847 00 Isael Moore MD /[facility]
[2018-06-16 12:54] VITALS: BP 159/86
== END | disposition home or self-care (01) ==
LOC: PAIN 07:15
DX: M54.16 Radiculopathy, lumbar region (principal); G89.29 Other chronic pain; I10 Essential (primary) hypertension; E11.9 Type 2 diabetes mellitus without complications; K21.9 Gastro-esophageal reflux disease without esophagitis; G47.33 Obstructive sleep apnea (adult) (pediatric); E66.01 Morbid (severe) obesity due to excess calories; F32.9 Major depressive disorder, single episode, unspecified; F41.9 Anxiety disorder, unspecified; G43.909 Migraine, unspecified, not intractable, without status migrainosus; Z96.642 Presence of left artificial hip joint; Z87.442 Personal history of urinary calculi; Z98.890 Other specified postprocedural states; Z79.899 Other long term (current) drug therapy; Z88.0 Allergy status to penicillin; Z79.891 Long term (current) use of opiate analgesic; Z68.39 Body mass index [BMI] 39.0-39.9, adult

== ENCOUNTER → 2018-11-10 | Outpatient (CLI) | payer BC, OTHER ==
[~2018-11-10] VITALS: Ht 180.3 cm; Wt 127.9 kg
[~2018-11-10] MED LIST changes: +BACLOFEN 10MG T10 MG PO; +HYDROCODON-ACE1 EAC8 PO; +MIDODRINE HCL 55 M1 PO
--- NOTE | ~2018-11-10 | HPC ---
[facility] [place] [address] PAIN MANAGEMENT CONSULTATION Name: TEA RACHEL Room #: REG [facility] Addie.#: [id number] Admission: 11/10/18 ������������������ Attend Phys: Isael Moore MD Discharge: ������������������ Date of : 64 Report #: [id number] THIS REPORT FOR: //name// CC: Isael Moreno DATE OF SERVICE: 11/10/2018 CHIEF COMPLAINT: Back pain on the right. HISTORY: The patient is a 58-year-old gentleman who has been seen and followed in the pain clinic because of chronic back pain. He has been having pain and discomfort since 09/2018. 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 After the burial he noticed increased pain and discomfort that continues to be problematic involving his upper back. He does have a history of back problems. He has had back surgery. He has had a stimulator placed. He notes that pain today is a 5/10 and can rise to the level of an 8/10. He has returned to the pain clinic today because of continued level of pain, which is quite problematic. ALLERGIES: PENICILLIN. CURRENT MEDICATIONS: Hydrocodone 7.5 mg one p.o. q. 6 hours p.r.n., trazodone 4 mg t.i.d., Ativan 5 mg, insulin 500 units subcutaneous as needed, Lipitor 20 mg, Protonix 40 mg and Actos 30 mg. PAIN CLINIC ASSESSMENT AND PQRS: 1. History of osteoarthritis. The patient has some arthritic changes in his knees. He is not being treated for rheumatoid arthritis. 2. Height 6 feet 0, weight 282 pounds, BMI is 39.3. 3. Vital signs: Blood pressure 160/96, pulse 80, respiratory rate 18, room air saturation is 100. 4. Pain intensity 5/10, today average 10/10. 5. Fall history: The patient has not fallen in the last 3 months. 6. Blood thinner. The patient is not on a blood thinning medication. 7. Hypertension. The patient is being treated for hypertension. 8. Opioids greater than 6 weeks. The patient receives medication through the pain clinic. 9. Risk assessment tool, low for opioid use. 10. Functional assessment tool, /. 11. Recreational drug use. The patient denies. 12. Tobacco: The patient has never smoked. 13. Alcohol. The patient denies frequent use of alcoholic beverages. PHYSICAL EXAMINATION: GENERAL: The patient is a well-developed, well-nourished, somewhat obese white male, appears his stated age. He is alert and oriented x 3[place] [address] PAIN MANAGEMENT CONSULTATION Name: TEA RACHEL Room #: REG [facility]#: [id number] Admission: 11/10/18 ������������������ Attend Phys: Isael Moore MD Discharge: ������������������ Date of : 64 Report #: [id number] appropriate. Speech is fluent. HEENT: Normocephalic, atraumatic. Extraocular eye muscles intact. Sclerae nonicteric. Mucous membranes are moist. NECK: Without adenopathy or JVD. HEART: Regular rate. ABDOMEN: Protuberant. Bowel sounds present. LUNGS: Clear to auscultation. MUSCULOSKELETAL: The patient has some pain and discomfort in the area of the rhomboid. Palpation in this area can reproduce the pain and discomfort. The patient has pain and discomfort with palpation in the area of the right rhomboid and the mid back area at approximately T8 and T9. IMPRESSION: 1. Myofascial pain mid back area near the rhomboid and mid interlaminar area at T9 and T10. 2. Lumbar radicular history at L5-S1, improved with epidural steroid injection. 3. Diabetes. 4. Essential hypertension. 5. Gastroesophageal reflux. 6. Gastritis. 7. Sleep apnea. 8. Morbid obesity. 9. Left total knee replacement. 10. Anxiety. 11. Depression. 12. Renal stones. 13. Migraine headaches. 14. Panic attacks. 15. Seizures. 16. Sleep walking. RECOMMENDATIONS: We discussed treatment options with the patient. At this point, he is having pain in the area of the right rhomboid. Palpation in this area can reproduce a significant amount of pain and discomfort. Also, he had some mid spinal soreness between the T9 and T10 area. Palpation in this area does cause some reproduction of his pain as well. We will consider the injection of the trigger points at these two locations. The risks and benefits of the procedure were discussed. Possibility of pneumothorax with placement of chest tubes was discussed. Also, the possibility of infection, worsening of pain and bleeding were discussed. The patient elects to proceed. PROCEDURE NOTE: The patient was taken to the procedure area. He was then assisted in getting on examination table. His back was sterilely prepped with a chlorhexidine solution and allowed to dry. A trigger point was noted in the right rhomboid area. The patient stated that this did reproduce his discomfort. Aspiration was negative for air. A total of 40 mg triamcinolone and 10 mL of [facility] [address] [place] [address] PAIN MANAGEMENT CONSULTATION Name: TEA RACHEL Room #: EVE Plata#: [id number] Admission: 11/10/18 ������������������ Attend Phys: Isael Moore MD Discharge: ������������������ Date of : 64 Report #: [id number] 0.5% bupivacaine was injected. The second trigger point in the mid T9/T10 area was palpated. This reproduced his discomfort. Injection in the area of the T9 and T10 area was noted. A total of 40 mg triamcinolone and 8 mL of 0.5% bupivacaine was injected. The patient tolerated the procedure well. He will monitor his blood sugars. Hopefully, he will continue to notice an improvement in his pain. We would like to thank you for letting us participate in his care. We hope he continues to improve. ��������������������������������������������� ���������������������������������������� By: ��������������������������������������������� [id number] Isael Moore MD /nt
[2018-11-10 08:28] VITALS: BP 160/96
--- NOTE | 2018-11-10 08:35 | NUR ---
Pain Clinic Assessment: 1. History of Osteoarthritis: LUMBAR SPINE History of Rheumatoid Arthritis: NONE 2. Height: 5 ft. 11 in. 180.3 cm. Weight: 282.0 lb. oz. 127.915 kg. Patient's BMI: 39.3 3. Vital Signs: BP: 160/96 Pulse: 80 Resp: 18 Temp: 02 Sat: 100 ECG Mon: 4. Pain Intensity: 5-TODAY, 10-AVG 5. Fall Risk: Dizziness: Y Needs help standing or walking: N Fallen in the last 3 months: N Fall risk comments: DIZZINESS DAILY R/T HYPOTENSION DX'S-SEEING CARDIOLOGY FOR THIS 6. Patient on Blood Thinner: None 7. History of Hypertension: Y 8. Opioid Therapy greater than 6 weeks: Y Opiate Contract Signed: 9. Risk Assessment Tool Provided: LOW 10. Functional Assessment Tool: 11. Recreational Drug Use: Never Drug Type: Tobacco Use: Never Smoker Tobacco Type: Amount or Packs/day: How Many Years: Alcohol Use: No Frequency: Quant:
== END | disposition home or self-care (01) ==
LOC: PAIN 06:44
DX: M79.18 Myalgia, other site (principal); G89.29 Other chronic pain; M54.16 Radiculopathy, lumbar region; I10 Essential (primary) hypertension; E11.9 Type 2 diabetes mellitus without complications; K21.9 Gastro-esophageal reflux disease without esophagitis; G47.30 Sleep apnea, unspecified; E66.01 Morbid (severe) obesity due to excess calories; F41.9 Anxiety disorder, unspecified; F32.9 Major depressive disorder, single episode, unspecified; G43.909 Migraine, unspecified, not intractable, without status migrainosus; Z87.19 Personal history of other diseases of the digestive system; Z96.652 Presence of left artificial knee joint; Z87.442 Personal history of urinary calculi; Z79.891 Long term (current) use of opiate analgesic; Z88.0 Allergy status to penicillin; Z79.899 Other long term (current) drug therapy; Z68.39 Body mass index [BMI] 39.0-39.9, adult; Z98.890 Other specified postprocedural states

== ENCOUNTER → 2019-02-25 | Outpatient (CLI) | payer BC, OTHER ==
[~2019-02-25] VITALS: Ht 180.3 cm; Wt 124.0 kg
[~2019-02-25] MED LIST changes: +PYRIDOSTIGMINE60 M1 PO
--- NOTE | ~2019-02-25 | HPC ---
[facility] [place] [address] PAIN MANAGEMENT CONSULTATION Name: TEA RACHEL [id number] Admission: 02/25/19 Attend Phys: Isael Moore MD Discharge: Date of : 64 Report #: [id number] THIS REPORT FOR: //name// CC: Isael Moreno MD DATE OF SERVICE: 02/25/2019 CHIEF COMPLAINT: Still having pain in the mid back area. HISTORY: The patient is a 58-year-old gentleman who has been followed in the pain clinic. Does have a history of chronic back pain. He notes that his pain and discomfort began in September 2018. His friend . He volunteered as a pallbearer. Since that time, he has noted pain and discomfort in the upper portion of his back. He still has a stimulator in place. He finds that this continues to be helpful, but still has pain, which is still quite disconcerting in the mid portion of his back. He did undergo an injection in November. He did note some improvement, but still has pain, which is still problematic. It has not totally subsided. He moved some files. This was a part of his current job. After moving those files about 5 weeks ago, he has noticed an increase in pain and discomfort after moving those 100 files. He has returned today with the hopes of undergoing treatment to help decrease his pain and discomfort. ALLERGIES: PENICILLIN. CURRENT MEDICATIONS: Pyridostigmine 60 mg daily, hydrocodone 7.5 mg one p.o. q. 6 hours p.r.n., baclofen 10 mg t.i.d., gabapentin 300 mg t.i.d., Florinef 1 mg b.i.d., Ranexa 500 mg b.i.d., lorazepam 0.5 mg, insulin subcutaneous b.i.d. sliding scale, Lipitor 20 mg, Protonix 40 mg, Actos 30 mg. PAIN CLINIC ASSESSMENT AND PQRS: 1. History of osteoarthritis. The patient has some osteoarthritic changes in his knees. He is not being treated for rheumatoid arthritis. 2. Height 6 feet 0 inches, weight 273 pounds, BMI is 38. 3. Vital signs: Blood pressure 147/89, pulse 103, respiratory rate 20, room air saturation is 100%. 4. Pain intensity. 19/12. 5. Fall risk. The patient has not fallen. Sometimes feels as though his legs might give out. 6. Blood thinner. The patient is not on a blood thinning medication. 7. Hypertension. The patient is being treated for hypertension. 8. Opioids greater than 6 weeks. The patient received medication from one source. 9. Risk assessment tool, low for opioid use. 10. Functional assessment tool 53/70. [address] [address] PAIN MANAGEMENT CONSULTATION Name: TEA RACHEL Room #: REG [facility]#: [id number] Admission: 02/25/19 Attend Phys: Isael Moore MD Discharge: Date of : 64 Report #: [id number] 11. Recreational drug use: The patient denies. 12. Alcohol: The patient denies. PHYSICAL EXAMINATI. GENERAL: The patient is a well-developed, well-nourished, somewhat obese white male. Appears his stated age. He is alert and oriented x 3. His affect is appropriate. Speech is fluent. HEENT: Normocephalic, atraumatic. Extraocular eye muscles intact. Sclerae nonicteric. Mucous membranes are moist. NECK: Without adenopathy or JVD. HEART: Regular rate. ABDOMEN: Protuberant mid back. MUSCULOSKELETAL: The patient complains of pain in the upper mid back area. This in the area below the rhomboids. Palpation in this area does reproduce the discomfort. Has pain in the mid back area at approximately T8-T9 midline. IMPRESSION: 1. Myofascial pain in the midline in rhomboid area and mid interlaminar areas at T9-T10 and T8/T9. 2. History of lumbar radicular pain in the L5-S1, improved with epidural steroid injections. 3. Diabetes. 4. Essential hypertension. 5. Gastroesophageal reflux. 6. Gastritis. 7. Sleep apnea. 8. Morbid obesity. 9. Left total knee replacement. 10. Anxiety. 11. Depression. 12. Renal stones. 13. Migraine headaches. 14. Panic attacks. 15. Seizures. 16. Sleepwalking. RECOMMENDATIONS: We discussed treatment options with the patient. At this juncture, the patient has pain and discomfort in the midline portion of his back at T8-T9 as well as T9-T10. Palpation in these areas do reproduce a component of the patient's pain and discomfort. He is not having pain at this juncture that radiates to the midline area in a dermatomal distribution. Appears more focal and local at the T9-T10 and T8-T9 levels. We discussed treatment options with the patient. Given that he is having pain, which is mostly local. Palpation of these 2 areas as mentioned above do reproduce a significant component of the patient's pain. We will proceed with [address] [address] PAIN MANAGEMENT CONSULTATION Name: TEA RACHEL Room #: [facility]#: [id number] Admission: 02/25/19 Attend Phys: Isael Moore MD Discharge: Date of : 64 Report #: [id number] trigger point injections in these areas. Risks and benefits of the trigger point injections were discussed. Possible complications of the procedure were reviewed. They could include infection, no improvement, worsening of pain, which persists as well as possibility of tension pneumothorax. The patient elects to proceed. PROCEDURE NOTE: The patient was taken to the procedure area. He was then assisted in setting. Palpation in the midline area at T8-T9 did reproduce a component of the patient's pain. A 0.5% bupivacaine was infiltrated. A 25 gauge spinal needle was then used. It was advanced into the area of discomfort. Aspiration was negative. A total of 10 mL of 0.5% bupivacaine and 40 mg triamcinolone was injected. The patient tolerated the procedure well. Pain decreased from 13 to 4 at the time of discharge. He will monitor his blood sugars. He will follow up in the future as needed. We would like to thank you for letting us participate in his care. We hope he continues to improve. By: [id number] Isael Moore MD /nt
[2019-02-25 12:57] VITALS: BP 147/89
--- NOTE | 2019-02-25 13:11 | NUR ---
Pain Clinic Assessment: 1. History of Osteoarthritis: LUMBAR SPINE History of Rheumatoid Arthritis: NONE 2. Height: 5 ft. 11 in. 180.3 cm. Weight: 273.4 lb. oz. 124.014 kg. Patient's BMI: 38.1 3. Vital Signs: BP: 147/89 Pulse: 102 Resp: 20 Temp: 02 Sat: 100 ECG Mon: 4. Pain Intensity: 13/10 5. Fall Risk: Dizziness: Needs help standing or walking: Fallen in the last 3 months: Fall risk comments: DIZZINESS DAILY R/T HYPOTENSION DX'S-SEEING CARDIOLOGY FOR THIS 6. Patient on Blood Thinner: None 7. History of Hypertension: Y 8. Opioid Therapy greater than 6 weeks: Y Opiate Contract Signed: 9. Risk Assessment Tool Provided: LOW 10. Functional Assessment Tool: 53/ 11. Recreational Drug Use: Never Drug Type: Tobacco Use: Never Smoker Tobacco Type: Amount or Packs/day: How Many Years: Alcohol Use: No Frequency: Quant:
== END | disposition home or self-care (01) ==
LOC: PAIN 06:49
DX: M79.18 Myalgia, other site (principal); M54.9 Dorsalgia, unspecified; G89.29 Other chronic pain; I10 Essential (primary) hypertension; E11.9 Type 2 diabetes mellitus without complications; K21.9 Gastro-esophageal reflux disease without esophagitis; G47.30 Sleep apnea, unspecified; E66.01 Morbid (severe) obesity due to excess calories; F41.9 Anxiety disorder, unspecified; F32.9 Major depressive disorder, single episode, unspecified; G43.909 Migraine, unspecified, not intractable, without status migrainosus; Z98.890 Other specified postprocedural states; Z79.899 Other long term (current) drug therapy; Z79.891 Long term (current) use of opiate analgesic; Z68.38 Body mass index [BMI] 38.0-38.9, adult; Z88.0 Allergy status to penicillin; Z96.652 Presence of left artificial knee joint; Z87.442 Personal history of urinary calculi

== ENCOUNTER → 2019-07-08 | Outpatient (CLI) | payer BC, OTHER ==
[~2019-07-08] VITALS: Ht 180.3 cm; Wt 116.4 kg
[~2019-07-08] MED LIST changes: +TRULICITY1.5 MG/0.5 SUBQ
[2019-07-08 08:29] VITALS: BP 117/75
--- NOTE | 2019-07-08 08:43 | NUR ---
Pain Clinic Assessment: 1. History of Osteoarthritis: LUMBAR SPINE History of Rheumatoid Arthritis: NONE 2. Height: 5 ft. 11 in. 180.3 cm. Weight: 256.6 lb. oz. 116.393 kg. Patient's BMI: 35.8 3. Vital Signs: BP: 117/75 Pulse: 73 Resp: 16 Temp: 02 Sat: 100 ECG Mon: 4. Pain Intensity: 7 5. Fall Risk: Dizziness: N Needs help standing or walking: N Fallen in the last 3 months: N Fall risk comments: DIZZINESS DAILY R/T HYPOTENSION DX'S-SEEING CARDIOLOGY FOR THIS 6. Patient on Blood Thinner: None 7. History of Hypertension: Y 8. Opioid Therapy greater than 6 weeks: Y Opiate Contract Signed: 9. Risk Assessment Tool Provided: LOW 10. Functional Assessment Tool: 53/ 11. Recreational Drug Use: Never Drug Type: Tobacco Use: Never Smoker Tobacco Type: Amount or Packs/day: How Many Years: Alcohol Use: Yes Frequency: Special Occasions Quant:
--- NOTE | 2019-07-15 13:39 | HPC ---
[facility] [place] [address] [place] [address] PAIN MANAGEMENT CONSULTATION Name: TEA RACHEL Room #: REG [facility].#: [id number] Admission: 07/08/19 Attend Phys: Isael Moore MD Discharge: Date of : 64 Report #: [id number] THIS REPORT FOR: cc: Abdifatah Moreno MD,Isael Foy MD, MD ~ CC: Isael Moreno DATE OF SERVICE: 07/08/2019 PRIMARY CARE PHYSICIAN: Abdifatah Moreno MD CHIEF COMPLAINT: Recurrence of low back pain down the right leg. HISTORY: The patient is a 59-year-old gentleman who has been followed in the pain clinic because of chronic back pain. He has had a number of back surgeries. He has noticed over the past few weeks an increase in pain and discomfort. He has had about 3 back surgeries. He does have a spinal cord stimulator in place, which he finds still beneficial. He notes that prolonged standing has exacerbated his discomfort. While at work, he had to stand for quite some time. After this prolonged standing, he noted pain in the mid back with pain radiating down to his right leg. Notes that sometime it feels like there is rigor mortis setting in with stiffening of his muscles. He has returned today for an injection, which has been helpful. ALLERGIES: PENICILLIN. CURRENT MEDICATIONS: Lipitor 20 mg, Trulicity 1.5 mg/0.5 mL injectable subcutaneous 1.5 mg weekly, gabapentin 300 mg 1 p.o. t.i.d., hydrocodone 7.5 mg one p.o. q. 6 hours p.r.n., insulin Humulin 500 units subcutaneous b.i.d., sliding scale, Ativan 0.5 mg, Protonix 40 mg, pyridostigmine 60 mg daily, and Ranexa 500 mg b.i.d. PAIN CLINIC ASSESSMENT AND PQRS: 1. History of osteoarthritis. The patient has some osteoarthritic changes in his knees. He is not being treated for rheumatoid arthritis. 2. Height 5 feet 11 inches, weight 256 pounds, BMI is 35.8. 3. Vital Signs: Blood pressure 117/75, pulse 73, respiratory rate 16, room air saturations 100%. 4. Pain intensity 09/15. 5. Fall history: The patient has not fallen in the last 3 months. 6. Blood thinner. The patient is not on a blood thinning medication. 7. Hypertension. The patient is not being treated for hypertension. 8. Opioids greater than 6 weeks. The patient receives [place] [address] PAIN MANAGEMENT CONSULTATION Name: TEA RACHEL Room #: REG [facility] Chi.#: [id number] Admission: 07/08/19 Attend Phys: Isael Moore MD Discharge: Date of : 64 Report #: [id number] 9. Risk assessment tool, low for opioid use. 10. Functional assessment tool 53/70. 11. Recreational drug use. The patient denies. 12. Tobacco: The patient has never smoked. 13. Alcohol: The patient occasionally drinks alcoholic beverages. PHYSICAL EXAMINATION: GENERAL: The patient is a well-developed, well-nourished, somewhat obese white male, appears his stated age. He is alert and oriented x 3. His affect is appropriate. Speech is fluent. HEENT: Normocephalic, atraumatic. Extraocular eye muscles intact. Sclerae nonicteric. Mucous membranes are moist. The patient is wearing a mask. NECK: Without adenopathy or JVD. HEART: Regular rate. ABDOMEN: Protuberant. The patient has some mid back discomfort. MUSCULOSKELETAL: The patient has pain and discomfort in the lower portion of his back with pain radiating down the right L4-L5 dermatomal distribution. IMPRESSION: 1. Lumbar radiculopathy, L5/L4 on the right. 2. Diabetes. 3. History of essential hypertension. 4. Gastroesophageal reflux. 5. Gastritis. 6. Sleep apnea. 7. Stomach reduction about 7 years ago. 8. Sleep apnea. 9. Morbid obesity. 10. Left total knee replacement. 11. Anxiety. 12. Depression. 13. Renal stones. 14. Migraine headaches. 15. Panic attacks. 16. Seizures. 17. Sleepwalking. RECOMMENDATIONS: We discussed treatment options with the patient. At this juncture, the patient feels that his pain is quite problematic. It is significantly imposing discomfort in the lower extremity with prolonged standing as well as with walking. This is significantly impacting his activities of daily living. The patient is aware that COVID-19 is prevalent in the area. We explained to him that the steroid medications can be suppressive of one's immune response. The patient is also aware that chronic pain may make the patient's more susceptible to COVID-19. The patient has another comorbidity of diabetes. Overall, he feels that the pain is so severe that he would feel that it is [facility] [address] [place] [address] PAIN MANAGEMENT CONSULTATION Name: TEA RACHEL Room #: REG [facility] Plata#: [id number] Admission: 07/08/19 Attend Phys: Isael Moore MD Discharge: Date of : 64 Report #: [id number] reasonable to proceed with an injection given the possible contraindications. PROCEDURE: The patient was then taken to the procedure area. He was then assisted in getting on the examination table. His back was sterilely prepped with a Betadine solution. A 0.25% bupivacaine was infiltrated at the right L4-L5 area. The patient has had surgery. A transforaminal approach was undertaken. A 22-gauge Chiba needle was then used to direct the injection using the transforaminal approach. Anterior and posterior view were provided using fluoroscopy. After appropriate placement and the area had been anesthetized with 0.25% bupivacaine with a 25-gauge needle, the 22 needle Chiba was then used to position for the injection. There was no CSF, heme or paresthesia. A total of 80 mg Depo-Medrol was injected. The patient tolerated the procedure well. There were no complications. The patient's pain was scored as a 4/10. Total of 15 seconds fluoroscopy time was used. We would like to thank you for letting us participate in his care. He will continue to monitor his blood sugars. <ELECTRONICALLY SIGNED> By: Isael Moore MD 07/15/19 [id number] Isael Moore MD /RUDY
== END | disposition home or self-care (01) ==
LOC: PAIN 07:17
DX: M54.16 Radiculopathy, lumbar region (principal); G89.29 Other chronic pain; I10 Essential (primary) hypertension; E11.9 Type 2 diabetes mellitus without complications; G47.30 Sleep apnea, unspecified; K21.9 Gastro-esophageal reflux disease without esophagitis; F32.9 Major depressive disorder, single episode, unspecified; G43.909 Migraine, unspecified, not intractable, without status migrainosus; F41.9 Anxiety disorder, unspecified; E66.01 Morbid (severe) obesity due to excess calories; Z98.890 Other specified postprocedural states; Z79.899 Other long term (current) drug therapy; Z87.442 Personal history of urinary calculi; Z96.652 Presence of left artificial knee joint; Z68.35 Body mass index [BMI] 35.0-35.9, adult; Z88.0 Allergy status to penicillin

== ENCOUNTER → 2019-11-30 | Outpatient (CLI) | payer BC, OTHER ==
[~2019-11-30] VITALS: Ht 180.3 cm; Wt 117.0 kg
[~2019-11-30] MED LIST changes: +HYDROCODONE-AP1 EA11 PO
--- NOTE | ~2019-11-30 | HPC ---
[facility] [address] [address] PAIN MANAGEMENT CONSULTATION Name: TEA RACHEL Room #: [facility]..#: [id number] Admission: 11/30/19 Attend Phys: Isael Moore MD Discharge: Date of : 64 Report #: [id number] CC: Isael Moreno DATE OF SERVICE: 11/30/2019 PRIMARY CARE PHYSICIAN: Abdifatah Moreno MD CHIEF COMPLAINT: Pain in the lumbar and right leg area. HISTORY: The patient is a 59-year-old gentleman who has been followed in the pain clinic. He has had a number of back surgeries. He returns today with complaints of pain and discomfort, which he rates to be 7-8 involving the right low back and leg area. He does have a spinal cord stimulator in place. He has had at least 3 back surgeries. Pain is more problematic with standing and with certain activities. He has noted and perceives some weakness in both legs. On the right side it feels like "there is a balloon going up and about to burst." He notes some pain and discomfort in his mid back. ALLERGIES: PENICILLIN. CURRENT MEDICATIONS: Lipitor 20 mg, Trulicity 1.5 mg injectable as directed, gabapentin 300 mg t.i.d., hydrocodone 7.5 mg q. 6 hours p.r.n., insulin 500 units as directed, sliding scale, Ativan 0.5 mg, Protonix 40 mg, pyridostigmine 60 mg daily, Ranexa 500 mg b.i.d. PAIN CLINIC ASSESSMENT AND PQRS: 1. The patient has a history of osteoarthritis. The patient has some osteoarthritic changes in his knees. He is not being treated for rheumatoid arthritis. 2. Height 5 feet 11 inches, weight 258 pounds, BMI 36. 3. Vital signs: Blood pressure 132/88, pulse 91, respiratory rate is 16, room air saturation is 100%. 4. Pain intensity 7-8/10. 5. Fall history: The patient has not fallen since we saw him last. 6. Blood thinner. The patient is on a blood thinning medication. 7. Hypertension. The patient is being treated for hypertension. 8. Opioids greater than 6 weeks. The patient receives medication from the pain clinic. 9. Risk assessment tool, low for opioid use. 10. Functional assessment tool, 53/70. 11. Recreational drug use. The patient denies. 12. Tobacco: The patient has never smoked. 13. Alcohol: The patient denies use of alcoholic beverages on a regular basis. PHYSICAL EXAMINATION: GENERAL: The patient is a well-developed, well-nourished, somewhat obese white male, appears his stated age. He is alert and oriented x 3. His affect is appropriate. Speech is fluent. HEENT: Normocephalic, atraumatic. Extraocular eye muscles intact. Sclerae nonicteric. Mucous membranes are moist. The patient is wearing a facial mask. NECK: Without adenopathy or JVD. HEART: Regular rate. LUNGS: Clear. ABDOMEN: Protuberant. Bowel sounds present. MUSCULOSKELETAL: The patient has some pain and discomfort in the lower portion of his back with pain radiating down the L4-L5 dermatomal distribution. IMPRESSION: 1. Lumbar radiculopathy, L4-L5 on the right side. 2. Diabetes. 3. Essential hypertension. 4. Gastroesophageal reflux. 5. Gastritis. 6. Sleep apnea. 7. Stomach reduction about 7 years ago. 8. Morbid obesity. 9. Left total knee replacement. 10. Anxiety. 11. Depression. 12. Renal stones. 13. Migraine headaches. 14. Panic attacks. 15. Seizures. 16. Sleepwalking. RECOMMENDATIONS: We discussed treatment options with the patient. At this juncture, we will proceed with a transforaminal epidural steroid injection. The patient does have a spinal cord stimulator in place. He also has had extensive surgery in the low back area. Risks and benefits of a transforaminal epidural steroid injection were discussed. The patient elects to proceed. He is aware that steroids can decrease one's immune response. The COVID-19 is pandemic. If he were to get infected, he may have a more difficult time with the infection. The patient is also aware that steroids can elevate one's blood sugar. He will continue to monitor his blood sugar level. PROCEDURE NOTE: The patient was taken to the procedure area. He was then assisted in getting on the examination table. His back was sterilely prepped with a Betadine solution and allowed to dry. A 0.25% bupivacaine was infiltrated using a 25-gauge needle. A 20-gauge spinal needle was then used to perform a transforaminal approach at L5. After appropriate placement, a total of 80 mg Depo-Medrol, 40 mg triamcinolone was injected. The patient's pain decreased from 8 to 4 at the time of discharge. He will follow up in the future as needed. A script for his medication of hydrocodone 7.5 mg was provided. We would like to thank you for letting us participate in his care. We hope he continues to improve. By: [id number] Isael Moore MD /[facility]
[2019-11-30 13:03] VITALS: BP 132/88
--- NOTE | 2019-11-30 13:18 | NUR ---
Pain Clinic Assessment: 1. History of Osteoarthritis: LUMBAR SPINE History of Rheumatoid Arthritis: NONE 2. Height: 5 ft. 11 in. 180.3 cm. Weight: 258.0 lb. oz. 117.028 kg. Patient's BMI: 36.0 3. Vital Signs: BP: 132/88 Pulse: 91 Resp: 16 Temp: 02 Sat: 100 ECG Mon: 4. Pain Intensity: 7-8 5. Fall Risk: Dizziness: Y Needs help standing or walking: N Fallen in the last 3 months: N Fall risk comments: DIZZINESS DAILY R/T HYPOTENSION DX'S-SEEING CARDIOLOGY FOR THIS 6. Patient on Blood Thinner: None 7. History of Hypertension: Y 8. Opioid Therapy greater than 6 weeks: Y Opiate Contract Signed: 9. Risk Assessment Tool Provided: LOW 10. Functional Assessment Tool: 53/ 11. Recreational Drug Use: Never Drug Type: Tobacco Use: Never Smoker Tobacco Type: Amount or Packs/day: How Many Years: Alcohol Use: Yes Frequency: Quant:
== END | disposition home or self-care (01) ==
LOC: PAIN 06:45
PROVIDERS: ATTEND Anesthesiology Pain Medicine
DX: M54.16 Radiculopathy, lumbar region (principal); G89.29 Other chronic pain; I10 Essential (primary) hypertension; E11.9 Type 2 diabetes mellitus without complications; K21.9 Gastro-esophageal reflux disease without esophagitis; F41.9 Anxiety disorder, unspecified; F32.9 Major depressive disorder, single episode, unspecified; G47.30 Sleep apnea, unspecified; G43.909 Migraine, unspecified, not intractable, without status migrainosus; Z96.642 Presence of left artificial hip joint; Z87.19 Personal history of other diseases of the digestive system; Z98.890 Other specified postprocedural states; Z79.899 Other long term (current) drug therapy

== ENCOUNTER → 2020-06-22 | Outpatient (CLI) | payer BC, OTHER ==
[~2020-06-22] VITALS: Ht 180.3 cm; Wt 116.7 kg
[~2020-06-22] MED LIST changes: +ACETAMINOPHEN500 M1 PO; +ST. JOSEPH ASPI81 MG PO
[2020-06-22 12:46] VITALS: BP 132/68
--- NOTE | 2020-06-22 12:58 | NUR ---
Pain Clinic Assessment: 1. History of Osteoarthritis: LUMBAR SPINE ?CERVICAL SPINE History of Rheumatoid Arthritis: NONE 2. Height: 5 ft. 11 in. 180.3 cm. Weight: 257.2 lb. oz. 116.665 kg. Patient's BMI: 35.9 3. Vital Signs: BP: 132/68 Pulse: 88 Resp: 16 Temp: 02 Sat: 100 ECG Mon: 4. Pain Intensity: 9 5. Fall Risk: Dizziness: N Needs help standing or walking: N Fallen in the last 3 months: N Fall risk comments: DIZZINESS DAILY R/T HYPOTENSION DX'S-SEEING CARDIOLOGY FOR THIS 6. Patient on Blood Thinner: None 7. History of Hypertension: Y 8. Opioid Therapy greater than 6 weeks: Y Opiate Contract Signed: 9. Risk Assessment Tool Provided: LOW 10. Functional Assessment Tool: 53/ 11. Recreational Drug Use: Never Drug Type: Tobacco Use: Never Smoker Tobacco Type: Amount or Packs/day: How Many Years: Alcohol Use: Yes Frequency: Quant:
== END | disposition home or self-care (01) ==
LOC: PAIN 12:28
PROVIDERS: ATTEND Anesthesiology Pain Medicine
DX: M54.16 Radiculopathy, lumbar region (principal); G89.29 Other chronic pain; I10 Essential (primary) hypertension; E11.9 Type 2 diabetes mellitus without complications; G47.30 Sleep apnea, unspecified; F32.9 Major depressive disorder, single episode, unspecified; F41.9 Anxiety disorder, unspecified; K21.9 Gastro-esophageal reflux disease without esophagitis; G43.909 Migraine, unspecified, not intractable, without status migrainosus; E66.01 Morbid (severe) obesity due to excess calories; Z98.890 Other specified postprocedural states; Z79.899 Other long term (current) drug therapy; Z96.652 Presence of left artificial knee joint; Z79.4 Long term (current) use of insulin; Z88.0 Allergy status to penicillin; Z87.442 Personal history of urinary calculi